=== PATIENT | female | born 1950 | race African-American/Black ===

== ENCOUNTER 2017-01-17 10:14 | Emergency (ER) | payer OTHER, BC ==
[2017-01-17 10:20] VITALS: BP 135/53; PULSE 64; TEMP 98; BMI 33.3
--- NOTE | 2017-01-17 10:28 | PDOC ---
History of Present Illness - General Chief Complaint: Injury Stated Complaint: BACK PAIN S/P FALL AT WORK Time Seen by Provider: 01/17/17 10:18 - History of Present Illness Initial Comments: 66 year old female with history of HTN and diabetes (non insulin dependent) presenting with lateral mid right back pain one day after a mechanical fall. She was in her office at the [employer] where she is employed and saw a "water bug" after which she quickly jumped up and began to ambulate backwards. She then tripped over the base of a large room fan and landed on her right ribs and back. She did not hit her head or lose consciousness during any point of the incident. She immediately felt a sharp thoracic pain and needed assistance getting up off of the floor. Since then the pain has been gradually worsening. She describes her current pain as a 6/10-8/10 "strong" pain that radiates from her right lower ribs from the posterior to the anterior surface that is worse with deep inspiration, any kind of movement, or any kind of touch. She has not taken anything for the pain yet because she wanted to wait for our evaluation. She has no history of kidney stones, cholelithiasis, or abdominal pathology. She denies fevers, chills, nausea, vomiting, numbness, tingling, chest pain otherwise, bowel incontinence, bladder incontinence, or any other symptoms. Her PCP is Clara. 01/17/17 11:07 Past History - Past Medical History Allergies/Adverse Reactions: Allergies Allergy/AdvReac Type Severity Reaction Status Date / Time Sulfa (Sulfonamide Allergy Verified 01/17/17 10:15 Antibiotics) Home Medications: Ambulatory Orders Aspirin [Desi Chewable] 81 mg PO DAILY 06/08/14 Bimatoprost [Lumigan] 1 drop OU BID 06/08/14 Cholecalciferol (Vitamin D3) [Vitamin D] 50,000 unit PO WEEKLY 06/08/14 Losartan Potassium 100 mg PO DAILY 06/08/14 Paroxetine HCl [Paxil] 30 mg PO DAILY 06/08/14 Potassium Chloride [K-Dur] 10 meq PO DAILY 06/08/14 Metformin HCl [Glucophage -] 500 mg PO DAILY 08/12/14 Pilocarpine 2% [Pilostat 2% -] 1 drop OP BID 08/12/14 Cyclobenzaprine HCl [Flexeril -] 10 mg PO BID PRN #14 tablet 01/17/17 Ibuprofen 400 mg PO BID PRN #28 tablet 01/17/17 Anemia: No Asthma: No Cancer: No Cardiac Disorders: Yes (murmur) CVA: No COPD: No CHF: No Dementia: No Diabetes: Yes GI Disorders: No Disorders: No HTN: Yes Hypercholesterolemia: Yes Liver Disease: No Psychiatric Problems: Yes (anxiety) Suicide Attempt (Hx): No Seizures: No Thyroid Disease: No - Surgical History Abdominal Surgery: Yes (gastric banding) Appendectomy: No Cardiac Surgery: No Cholecystectomy: No Lung Surgery: No Neurologic Surgery: No Orthopedic Surgery: No - Family Disease History Family Disease History: Other: Mother (vertigo) - Immunization History Immunization Up to Date: Yes - Psycho/Social/Smoking Cessation Hx Anxiety: No Suicidal Ideation: No Smoking History: Never smoked Have you smoked in the past 12 months: No Number of Cigarettes Smoked Daily: 0 Information on smoking cessation initiated: No Hx Alcohol Use: Yes (OCCASIONAL) Drug/Substance Use Hx: No Substance Use Type: None Hx Substance Use Treatment: No Review of Systems - Review of Systems Constitutional: No: Chills, Diaphoresis, Fever HEENTM: No: Blurred Vision, Recent change in vision Respiratory: No: Cough, Shortness of Breath, SOB with Exertion, Wheezing, Productive cough Cardiac (ROS): Yes: Chest Pain. No: Edema, Irregular Heart Rate ABD/GI: No: Abdominal Distended, Constipated, Diarrhea, Nausea : No: Burning, Dysuria, Discharge, Incontinence, Urgency Musculoskeletal: Yes: Back Pain, Muscle Pain Integumentary: No: Bruising, Change in Color Neurological: No: Headache, Numbness, Paresthesia *Physical Exam - Vital Signs Last Vital Signs Temp Pulse Resp BP Pulse Ox 98 F 64 18 135/53 97 01/17/17 10:15 01/17/17 10:15 01/17/17 10:15 01/17/17 10:15 01/17/17 10:15 - Physical Exam General Appearance: Yes: Nourished, Appropriately Dressed. No: Apparent Distress HEENT: positive: EOMI, MAGDALENE, Normal Voice Neck: positive: Trachea midline, Normal Thyroid, Supple. negative: Tender, Rigid Respiratory/Chest: positive: Chest Tender (Tender to palpation over anterior right lower lateral thorax. Worsening pain with deep inspiration.), Lungs Clear , Normal Breath Sounds. negative: Respiratory Distress, Accessory Muscle Use Cardiovascular: positive: Regular Rhythm, Regular Rate, Murmur. negative: S1, S2 Gastrointestinal/Abdominal: positive: Normal Bowel Sounds, Flat, Soft. negative : Tender, Organomegaly Musculoskeletal: positive: Other (Atenderness to papation with obvious muscular spasm/ contraction in right thorax overlign ribs 8-12 on the posterior aspect. Pain in this same area with movement of shoulder. No palpable step off of rib. No spinal tenderness. No rash sen overlying ribs or superficial epidermal pain.) . negative: Normal Inspection, CVA Tenderness Extremity: positive: Normal Range of Motion Integumentary: positive: Normal Color, Dry, Warm Neurologic: positive: Fully Oriented, Alert, Normal Mood/Affect Medical Decision Making - Medical Decision Making 66 year old female with HTN presenting with right mid thoracic pain after backwards mechanical fall. No immediate need to perform any head scan given lack of head trauma, headache, visual symptoms, or LOC. No need for basic labs given lack of other symptoms. No need for urine or cardiac workup given better explanation for back pain and chest pain. Rib series negative for fracture and pain much improved after 15 IV toradol and 5 Valium. Will DC patient home with flexeril and ibuprofen. 01/17/17 11:57 *DC/Admit/Observation/Transfer Diagnosis at time of Disposition: Rib pain on right side - Discharge Dispostion Disposition: HOME Condition at time of disposition: Improved Admit: No - Prescriptions Prescriptions: Cyclobenzaprine HCl [Flexeril -] 10 mg PO BID PRN #14 tablet PRN Reason: Back Pain Ibuprofen 400 mg PO BID PRN #28 tablet PRN Reason: Back Pain - Patient Instructions Additional Instructions: You were seen for back pain after your fall. We did an x ray that did not show any fracture or break. We believe that you could have some deeper brusiing of your muscle or bone. This will heal over a week or two. Please take your medication as needed for pain. Please return if you have any loss of control of your bowels or bladder. - Attestations Physician Attestion: I, Dr. Celso Coker, attest that this document has been prepared under my direction and personally reviewed by me in its entirety. I further attest, that it accurately reflects all work, treatment, procedures and medical decision -making performed by [facility]. 01/17/17 12:08
[2017-01-17] MEDS ORDERED: KETOROLAC TROMETHAMINE 30 MG/1 ML VIAL IM ONE (10:37)
[2017-01-17] MEDS ORDERED: diazePAM 5 MG TABLET PO ONE (10:39)
[2017-01-17] MEDS ORDERED: KETOROLAC TROMETHAMINE 30 MG/1 ML VIAL ONE (10:42)
[2017-01-17] MEDS ORDERED: diazePAM 5 MG TABLET ONE (10:42)
[2017-01-17] MEDS ORDERED: KETOROLAC TROMETHAMINE 30 MG/1 ML VIAL IVPUSH ONE (10:52)
--- NOTE | 2017-01-17 10:54 | PDOC ---
Attending Attestation - Resident Resident Name: Celso Coker - ED Attending Attestation I have performed the following: I have examined & evaluated the patient, The case was reviewed & discussed with the resident, I agree w/resident's findings & plan, Exceptions are as noted - HPI HPI: 01/17/17 10:53 66y F presenting s/p mechanical fall. Pt was walking backwards backing up from a bug and tripped,f alling on her R back. Pt states she had pain immediately and needed assistance to stand up, but was feeling ok afterwards,but the pain gradually worsened overnight and this morning, pain when he was walking around. Denies any numnbess/tingling/weakness, head injury, LOC, abd pain, cp, neck pain , extremity pain. Pt has not taken any PO meds for her discomfort at home. - Physicial Exam PE: 01/17/17 11:11 GENERAL: The patient is awake, alert, and fully oriented, Nontoxic - in no acute distress. HEAD: Normocephalic, atraumatic. EYES: extraocular movements intact, sclera anicteric, conjunctiva clear. LUNGS: Breath sounds equal, clear to auscultation bilaterally. No wheezes, no rhonchi, no rales. HEART: Regular rate and rhythm, normal S1 and S2 without murmur, rub or gallop. ABDOMEN: Soft, nontender, EXTREMITIES: Normal range of motion, no edema. No clubbing or cyanosis. No cords, erythema, or tenderness. NEUROLOGICAL: No facial assymetry, Normal speech, normal gait Back: No midline tenderness to the cervical, thoracic or lumbar spine Musculoskelatal: FROM of b/l shoulders, elbows, wrist. FROM of hips, knees, ankles - No signs of ecchymosis, erythema, or crepitus noted on palpation extremities, chest wall, clavicals, Mild diffuse tenderness on the R upper back and R flank without any bruising/erythema - Medical Decision Making 01/17/17 11:13 suspect muscle pain vs rib fx will obtain rib series to r/o fx will give toradol/valium will reassess 01/17/17 12:12 pt feling improved xray neg for fx will dc with nsaids and flexeril PMD fu return precautions were dsicussed
== END 2017-01-17 12:22 | disposition home or self-care (01) ==
LOC: FER 10:14
PROC: 3E0333Z Introduction of Anti-inflammatory into Peripheral Vein, Percutaneous Approach (ICD-10-PCS; principal; 2017-01-17)
DX: R07.81 Pleurodynia (principal); I10 Essential (primary) hypertension; W19.XXXA Unspecified fall, initial encounter; Y93.89 Activity, other specified; Y92.148 Other place in prison as the place of occurrence of the external cause; Y99.0 Civilian activity done for income or pay; R01.1 Cardiac murmur, unspecified; F41.9 Anxiety disorder, unspecified; Z98.84 Bariatric surgery status
CPT/HCPCS: 71101-TC-RT; 99282-25

== ENCOUNTER 2017-02-01 10:14 | Emergency (ER) | payer BC, OTHER ==
[2017-02-01 10:24] VITALS: BP 114/90; PULSE 66; TEMP 98.2; BMI 35.7
--- NOTE | 2017-02-01 10:27 | PDOC ---
History of Present Illness - General Chief Complaint: Injury Stated Complaint: PAIN Time Seen by Provider: 02/01/17 10:20 - History of Present Illness Initial Comments: 02/01/17 10:29 Chief complaint: Pain right knee and right second toe History of present illness: Patient is recovering from a back injury, was going down stairs last night, felt sudden back spasm and fell, injuring her right knee and right second toe. No loss of consciousness. He arose on her own. Ambulatory but with pain in the knee and toe on weightbearing and ambulation Review of systems: Denies pain or injury to the head neck chest abdomen pelvis hips or other extremities. Denies aggravating her back injury. Denies recent chest pain, shortness of breath, abdominal pain, nausea, vomiting, diarrhea, visual or focal neurologic symptoms, unsteadiness of gait, lightheadedness, dizziness, vertigo Past medical history: High blood pressure, [id number] diabetes, mood disorder, back strain Social/family history reviewed and noncontributory. Currently out on disability. 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 Physical exam: Alert and oriented well-developed well-nourished no acute distress at rest. Cooperative Afebrile, vital signs normal Right knee: Superficial abrasion over the patella. No punctures or penetration into the bursa. Mild diffuse swelling, small effusion, no deformity, adequate range of motion in flexion and extension. Distal pulses full. No distal sensory or motor deficits. Most of the tenderness appears to be over the patella, medial border. No significant tenderness over the medial or lateral joint spaces , MCL or LCL. Stress tenderness of the MCL/LCL, and Lockman are indeterminate because of pain and guarding. The left second toe shows minimal bruising at the base of the toenail, no deformity angular rotational, no swelling. Head atraumatic. PERRLA, ENT clear Neck without tenderness or deformity, good range of motion without pain Chest clear. No rib cage or chest wall deformity or tenderness Spine without deformity or inflammatory changes CV within normal limits Abdomen benign Neurological intact Impression: Rule out fracture patella, rule out toe fracture Plan: X-ray and further orthopedic management depending on results Past History - Past Medical History Allergies/Adverse Reactions: Allergies Allergy/AdvReac Type Severity Reaction Status Date / Time Sulfa (Sulfonamide Allergy Verified 02/01/17 10:20 Antibiotics) Home Medications: Ambulatory Orders Aspirin [Desi Chewable Aspirin] 81 mg PO DAILY 06/08/14 Bimatoprost [Lumigan] 1 drop OU BID 06/08/14 Cholecalciferol (Vitamin D3) [Vitamin D3] 50,000 unit PO WEEKLY 06/08/14 Losartan Potassium 100 mg PO DAILY 06/08/14 Paroxetine HCl [Paxil] 30 mg PO DAILY 06/08/14 Potassium Chloride [K-Dur] 10 meq PO DAILY 06/08/14 Metformin HCl [Glucophage -] 500 mg PO DAILY 08/12/14 Pilocarpine 2% [Pilostat 2% -] 1 drop OP BID 08/12/14 Cyclobenzaprine HCl [Flexeril -] 10 mg PO BID PRN #14 tablet 01/17/17 Ibuprofen 400 mg PO BID PRN #28 tablet 01/17/17 Oxycodone HCl/Acetaminophen [Percocet 5-325 mg Tablet] 1 - 2 tab PO Q4H PRN #20 tablet MDD 8 02/01/17 Anemia: No Asthma: No Cancer: No Cardiac Disorders: Yes (murmur) CVA: No COPD: No CHF: No Dementia: No Diabetes: Yes GI Disorders: No Disorders: No HTN: Yes Hypercholesterolemia: Yes Liver Disease: No Psychiatric Problems: Yes (anxiety) Suicide Attempt (Hx): No Seizures: No Thyroid Disease: No - Surgical History Abdominal Surgery: Yes (gastric banding) Appendectomy: No Cardiac Surgery: No Cholecystectomy: No Lung Surgery: No Neurologic Surgery: No Orthopedic Surgery: No - Family Disease History Family Disease History: Other: Mother (vertigo) - Immunization History Immunization Up to Date: Yes - Psycho/Social/Smoking Cessation Hx Anxiety: Yes Suicidal Ideation: No Smoking History: Never smoked Have you smoked in the past 12 months: No Number of Cigarettes Smoked Daily: 0 Hx Alcohol Use: No Drug/Substance Use Hx: No Substance Use Type: None Hx Substance Use Treatment: No *Physical Exam - Vital Signs Last Vital Signs Temp Pulse Resp BP Pulse Ox 98.2 F 66 18 114/90 99 02/01/17 10:15 02/01/17 10:15 02/01/17 10:15 02/01/17 10:15 02/01/17 10:15 Medical Decision Making - Medical Decision Making 02/01/17 11:56 X-ray is reviewed: No fracture of the knee or toe Abrasion of the knee scrubbed with saline and dressed with bacitracin. Jamar bandage applied. Patient refuses crutches. Patient is out on disability, will rest at home, elevate, and follow-up with orthopedist in one week if no improvement. Wound care discussed and patient adequately ambulatory upon discharge to follow-up as directed 02/01/17 11:58 *DC/Admit/Observation/Transfer Diagnosis at time of Disposition: Contusion of knee Qualifiers: Encounter type: initial encounter Laterality: right Qualified Code(s): S80.01XA - Contusion of right knee, initial encounter - Discharge Dispostion Disposition: HOME Condition at time of disposition: Stable Admit: No - Prescriptions Prescriptions: Oxycodone HCl/Acetaminophen [Percocet 5-325 mg Tablet] 1 - 2 tab PO Q4H PRN #20 tablet MDD 8 PRN Reason: Severe Pain - Referrals Referrals: Sd Toussaint MD [Staff Physician] - 1 week - Patient Instructions Printed Discharge Instructions: DI for Contusion Additional Instructions: Rest, ice, elevate, wound care as directed, Jamar wrap for support. See orthopedist in one week if pain or swelling persists. If there is sign of infection, return to the emergency room for further evaluation immediately.
[2017-02-01] MEDS ORDERED: DIPHTH,PERTUSS(ACELL),TET 0.5 ML DISP.SYRIN IM ONE (10:45)
[2017-02-01] MEDS ORDERED: ACETAMINOPHEN WITH CODEINE 300MG/30MG TABLET PO ONE (11:15)
[2017-02-01] MEDS ORDERED: ACETAMINOPHEN WITH CODEINE 300MG/30MG TABLET ONE (11:20)
== END 2017-02-01 12:08 | disposition home or self-care (01) ==
LOC: FER 10:14
PROC: 3E0234Z Introduction of Serum, Toxoid and Vaccine into Muscle, Percutaneous Approach (ICD-10-PCS; principal; 2017-02-01)
DX: S80.01XA Contusion of right knee, initial encounter (principal); W18.39XA Other fall on same level, initial encounter; Y93.89 Activity, other specified; Y92.9 Unspecified place or not applicable; I10 Essential (primary) hypertension; E11.9 Type 2 diabetes mellitus without complications; F39 Unspecified mood [affective] disorder
CPT/HCPCS: 73560-TC-RT; 73660-TC; 90715; 99282-25

== ENCOUNTER 2017-11-22 21:34 | Emergency (ER) | payer BC, OTHER ==
--- NOTE | 2017-11-22 21:47 | PDOC ---
History of Present Illness - General History Source: Patient Exam Limitations: No Limitations - History of Present Illness Initial Comments: 11/22/17 21:58 The patient is a 67 year old female with a significant PMH of hypertension, diabetes, mood disorder, and back strain who presents to the emergency department with 2 weeks of consistent epigastric pain. The patient reports associated nausea with her epigastric pain. The patient describes her symptoms as feeling like morning sickness. The patient reports that she has been experiencing a lot of belching with her epigastric pain as well. She reports that she has no taste in her mouth and has been unable to eat. The patient denies any vomiting or any relief of her epigastric pain. The patient reports that she has a lap band in place. She denies any other symptoms. She denies any fever, chills, vomit, diarrhea, constipation or urinary symptoms. She denies chest pain, shortness of breath, headache and dizziness. The patient denies any other complaints. PAST MEDICAL HISTORY: hypertension, diabetes, mood disorder, and back strain PAST SURGICAL HISTORY: lap band surgery. FAMILY HISTORY: no pertinent history SOCIAL HISTORY: Pt lives with family and is employed. MEDICATIONS: reviewed ALLERGIES: As per nursing notes General: No fevers or chills, no weakness, no weight loss HEENT: No change in vision. No sore throat,. No ear pain CardioVascular: No chest pain or shortness of breath Respiratory:No cough, or wheezing. Gastrointestinal: (+)epigastric pain, nausea. no vomiting, diarrhea or constipation, No rectal bleeding Genitourinary: No dysuria, hematuria, or frequency Musculoskeletal: No joint or muscle pain or swelling Neurologic: No headache, vertigo, dizziness or loss of consciousness Psychiatric: nor depression Skin: No rashes or easy bruising Endocrine: no increased thirst or abnormal weight change Allergic: no skin or latex allergy All other systems reviewed and normal General: Well-nourished well-developed individual, no acute distress HEENT: Throat: Normal, tonsils normal, no erythema or exudate Neck: Supple, no meningeal signs, no lymphadenopathy Eyes::Pupils equal reactive and round, extraocular motion intact Chest: Nontender to palpation Cardiac: S1-S2 normal, regular rate and rhythm, no murmurs rubs or gallops Respiratory: Lungs clear to auscultation bilateral Abdomen: (+)soft and non tender, palpable lap band, slight increase in bowel sound. nondistended, Extremities: Warm, dry, no cyanosis, clubbing, or edema Skin: No rashes Neuro: Alert and oriented x3, nonfocal exam, grossly intact, normal gait Psych: Normal mood and affect <Héctor Westfall - Last Filed: 11/22/17 21:58> - General History Source: Patient Exam Limitations: No Limitations - History of Present Illness Initial Comments: 22:00 A portion of this note was documented by scribe services under my direction. I have reviewed the details of the note, within reason, and agree with the documentation. The case summary and management plan written by me. 01:00 Assessment and plan: This is a 67-year-old female with 2 weeks of nausea and some intermittent epigastric pain. Patient had a complete workup including labs and CAT scan. Patient labs were all normal including normal white count and no left shift. Patient's potassium was a little low at 3.3 and I gave her some K Dur. Otherwise her labs were unremarkable Patient's can scan showed no acute pathology her lap band was in good position and the rest of the exam was unremarkable. Patient given copies of her CAT scan her blood work and discharged home told to follow-up with her doctor I did send a prescription for Reglan to her pharmacy. <Martín Boyd I - Last Filed: 11/23/17 01:18> - General Chief Complaint: Nausea Stated Complaint: NAUSEA Time Seen by Provider: 11/22/17 21:47 Past History <Héctor Westfall - Last Filed: 11/22/17 21:58> - Past Medical History Anemia: No Asthma: No Cancer: No Cardiac Disorders: Yes (murmur) CVA: No COPD: No CHF: No Dementia: No Diabetes: Yes GI Disorders: No Disorders: No HTN: Yes Hypercholesterolemia: Yes Liver Disease: No Psychiatric Problems: Yes (anxiety) Seizures: No Thyroid Disease: No - Surgical History Abdominal Surgery: Yes (gastric banding) Appendectomy: No Cardiac Surgery: No Cholecystectomy: No Lung Surgery: No Neurologic Surgery: No Orthopedic Surgery: No - Family Disease History Family Disease History: Other: Mother (vertigo) - Immunization History Immunization Up to Date: Yes - Suicide/Smoking/Psychosocial Hx Smoking History: Never smoked Have you smoked in the past 12 months: No Number of Cigarettes Smoked Daily: 0 Information on smoking cessation initiated: No Hx Alcohol Use: No Drug/Substance Use Hx: No Substance Use Type: None Hx Substance Use Treatment: No <Martín Boyd I - Last Filed: 11/23/17 01:18> - Past Medical History Allergies/Adverse Reactions: Allergies Allergy/AdvReac Type Severity Reaction Status Date / Time Sulfa (Sulfonamide Allergy Verified 02/01/17 10:20 Antibiotics) Home Medications: Ambulatory Orders Aspirin [Desi Chewable Aspirin] 81 mg PO DAILY 06/08/14 Bimatoprost [Lumigan] 1 drop OU BID 06/08/14 Cholecalciferol (Vitamin D3) [Vitamin D3] 50,000 unit PO WEEKLY 06/08/14 Losartan Potassium 100 mg PO DAILY 06/08/14 Paroxetine HCl [Paxil] 30 mg PO DAILY 06/08/14 Potassium Chloride [K-Dur] 10 meq PO DAILY 06/08/14 Pilocarpine 2% [Pilostat 2% -] 1 drop OP BID 08/12/14 metFORMIN HCL [Glucophage -] 500 mg PO DAILY 08/12/14 Cyclobenzaprine HCl [Flexeril -] 10 mg PO BID PRN #14 tablet 01/17/17 Ibuprofen 400 mg PO BID PRN #28 tablet 01/17/17 Oxycodone HCl/Acetaminophen [Percocet 5-325 mg Tablet] 1 - 2 tab PO Q4H PRN #20 tablet MDD 8 02/01/17 Metoclopramide HCl [Reglan] 10 mg PO TID PRN #12 tablet 11/23/17 *Physical Exam - Vital Signs Last Vital Signs Temp Pulse Resp BP Pulse Ox 98.6 F 64 14 124/60 100 11/22/17 21:35 11/22/17 21:35 11/22/17 21:35 11/22/17 21:35 11/22/17 21:35 <Héctor Westfall - Last Filed: 11/22/17 21:58> - Vital Signs Last Vital Signs Temp Pulse Resp BP Pulse Ox 98.6 F 64 14 124/60 100 11/22/17 21:35 11/22/17 21:35 11/22/17 21:35 11/22/17 21:35 11/22/17 21:35 <Martín Boyd I - Last Filed: 11/23/17 01:18> ED Treatment Course - LABORATORY CBC & Chemistry Diagram: 11/22/17 22:16 11/22/17 22:16 <Martín Boyd I - Last Filed: 11/23/17 01:18> *DC/Admit/Observation/Transfer - Attestations Scribe Attestion: 11/22/17 21:59 Documentation prepared by Héctor Westfall, acting as medical staff coordinator for Martín Boyd MD. <Héctor Westfall - Last Filed: 11/22/17 21:58> - Discharge Dispostion Decision to Admit order: No <Martín Boyd I - Last Filed: 11/23/17 01:18> Diagnosis at time of Disposition: Nausea alone - Discharge Dispostion Disposition: HOME Condition at time of disposition: Good - Referrals Referrals: Sandra Hogue MD [Primary Care Provider] - - Patient Instructions Additional Instructions: I sent a prescription to Reglan for the nausea you can take it as often as 3 times a day if needed for nausea. Return to the emergency department immediately with ANY new, persistent or worsening symptoms. Continue any medications as previously prescribed by your physician. You should follow up with your primary doctor as soon as possible regarding today's emergency department visit. . Please make sure your doctor reviews the results of your emergency evaluation. Thank you for coming to the Emergency Department today for your care. It was a pleasure to see you today. Please note that your evaluation is INCOMPLETE until you follow-up with your doctor. - Post Discharge Activity
[2017-11-22] MEDS ORDERED: ONDANSETRON 4 MG/2 ML VIAL IVPB ONE (21:52)
[2017-11-22 21:54] VITALS: TEMP 98.6
[2017-11-22] MEDS ORDERED: SODIUM CHLORIDE 1,000 ML IV SCH (22:00)
[2017-11-22] MEDS ORDERED: ONDANSETRON 4 MG/2 ML VIAL ONE (22:21)
[2017-11-22 22:33] LABS: BASO % 0.6 % (0-2.0); EOS % 2.4 % (0-4.5); HEMATOCRIT 37.9 % (32.4-45.2); HEMOGLOBIN 12.5 GM/dl (10.7-15.3); LYMPH % 24.1 % (8-40); MCH 30.1 pg (25.7-33.7); MEAN CELL VOLUME 91.3 fl (80-96); MEAN PLT VOLUME 7.9 fl (7.5-11.1); MONO % 5.2 % (3.8-10.2); NEUT % 67.7 % (42.8-82.8); PLATELET COUNT 329 K/MM3 (134-434); RBC 4.15 M/mm3 (3.60-5.2); RDW 13.4 % (11.6-15.6); WHITE BLOOD COUNT 5.8 K/mm3 (4.0-10.8)
[2017-11-22 22:57] LABS: ALBUMIN 3.9 g/dl (3.5-5.0); ALK PHOS 83 U/L (32-92); ANION GAP 7 (8-16); BILIRUBIN,TOTAL 1.1 mg/dl (0.2-1.0); BLOOD UREA NITROGEN 19 mg/dl (7-18); CALCIUM 8.7 mg/dl (8.4-10.2); CHLORIDE 106 mmol/L (98-107); CO2 26 mmol/L (22-28); CREATININE 1.9 mg/dl (0.6-1.3); GLUCOSE,RANDOM 94 mg/dl (74-106); POTASSIUM 3.3 mmol/L (3.5-5.1); SGOT/AST 13 U/L (10-42); SODIUM 139 mmol/L (136-145); TOT PROT 7.2 g/dl (6.4-8.3)
[2017-11-22 23:09] LABS: LIPASE 175 U/L (73-393)
[2017-11-22 23:25] LABS: SGPT/ALT 9 U/L (10-40)
[2017-11-22 23:34] LABS: PH,URINE 5.5 (4.5-8); URINE APPEARANCE Clear; URINE BILIRUBIN Negative (NEGATIVE); URINE GLUCOSE (UA) Negative (NEGATIVE); URINE KETONE Negative (NEGATIVE); URINE LEUK ESTERASE Negative (NEGATIVE); URINE NITRITE Negative (NEGATIVE); URINE PROTEIN Negative (NEGATIVE); URINE UROBILINOGEN 0.2 (0.2-1.0)
[2017-11-22] MEDS ORDERED: POTASSIUM CHLORIDE TABS 20 MEQ TABLET.ER (FP) PO ONE (23:54)
[2017-11-23 00:10] LABS: URINE COLOR YELLOW
[2017-11-23] MEDS ORDERED: POTASSIUM CHLORIDE TABS 20 MEQ TABLET.ER (FP) PO ONE (00:10)
[2017-11-23 00:11] LABS: EPI CELLS 2+ /HPF; URINE BACTERIA FEW /hpf (NEGATIVE); URINE RBC 0-3 /hpf (0-3)
[2017-11-23 01:24] VITALS: BP 153/76; PULSE 70
--- NOTE | 2017-11-23 11:58 | EKG ---
Test Reason : Blood Pressure : / mmHG Vent. Rate : 059 BPM Atrial Rate : 059 BPM P-R Int : 132 ms QRS Dur : 072 ms QT Int : 426 ms P-R-T Axes : 050 004 -02 degrees QTc Int : 421 ms SINUS BRADYCARDIA NONSPECIFIC ST AND T WAVE ABNORMALITY ABNORMAL ECG NO PREVIOUS ECGS AVAILABLE Confirmed by NUZHAT CARLTON, ALCIDES ([id number]) on 11/23/2017 11:58:15 AM Referred By: MD CONNELLY Confirmed By:ALCIDES NOLAND MD
== END 2017-11-23 01:41 | disposition home or self-care (01) ==
LOC: FER 21:34
PROC: 3E033GC Introduction of Other Therapeutic Substance into Peripheral Vein, Percutaneous Approach (ICD-10-PCS; principal; 2017-11-22)
DX: R11.0 Nausea (principal); I10 Essential (primary) hypertension; E11.9 Type 2 diabetes mellitus without complications; F39 Unspecified mood [affective] disorder; Z98.84 Bariatric surgery status
CPT/HCPCS: 36415; 74176-TC; 80053; 81003; 81015; 82550; 83690; 84484; 85025; 93005; 99284-25; J7030

== ENCOUNTER 2020-07-20 17:02 | Emergency (ER) | payer OTHER ==
[2020-07-20 17:11] VITALS: BP 146/96; PULSE 88; TEMP 98.5; BMI 35.4
== END 2020-07-20 18:23 | disposition home or self-care (01) ==
LOC: FER 17:02
DX: M79.601 Pain in right arm (principal)
CPT/HCPCS: 73030-TC-RT-FY; 73060-TC-RT-FY; 73070-TC-RT-FY; 99285-25